=== PATIENT | male | born 1945 | race Caucasian/White ===

== ENCOUNTER 2019-01-04 08:56 | Inpatient (IN) ==
[2019-01-04] MEDS ORDERED: LORazepam 1 MG TABLET ONE (09:52)
[2019-01-04] MEDS ORDERED: LORazepam 1 MG TABLET PO STA (09:53)
[2019-01-04] MEDS ORDERED: SODIUM CHLORIDE 0.9% 1,000 ML IV STA (09:55)
[2019-01-04 10:32] LABS: Basophils % 0.5 % (0.0-0.8); Eosinophils % 0.2 % (0.00-10.9); Immature Granulocytes % 0.4 %; Immature Granulocytes Absolute 0.03 #; Mean Corpuscular HGB Conc 27.4 GM/DL (32-36); Mean Corpuscular Volume 66.7 FL (87-102); Mean Platelet Volume 10.2 FL (9.6-12.0); Monocytes % 6.5 % (1.7-12.7); Neutrophils % 80.4 % (38.7-73.9); Platelet Count 381 T/CUMM (130-400); Red Blood Count 2.46 MC/CUMM (3.8-5.5); Red Cell Distribution Width 17.5 % (9.3-17.3); White Blood Count 8.4 T/CUMM (4-12)
[2019-01-04 10:41] LABS: Hematocrit 16.4 VOL% (42.0-52.0); Hemoglobin 4.5 GM/DL (14.0-18.0)
[2019-01-04 10:55] LABS: Alanine Aminotransferase 13 U/L (16-61); Albumin 2.7 G/DL (3.4-5.0); Alkaline Phosphatase 97 U/L (45-117); Aspartate Amino Transferase 12 U/L (0-37); Bilirubin,Total < 0.39 MG/DL (0.2-1.0); Blood Urea Nitrogen 12 MG/DL (7-18); Calcium 8.3 MG/DL (8.5-10.1); Glucose 109 MG/DL (74-106); Osmolality,Calculated 279.4 MOS/KG (273-304); Total Protein 6.5 G/DL (6.4-8.3)
[2019-01-04] MEDS ORDERED: SODIUM CHLORIDE 0.9% 1,000 ML IV PRN (11:11)
[2019-01-04] MEDS ORDERED: ACETAMINOPHEN 325 MG TABLET PO PRN (11:34)
[2019-01-04] MEDS ORDERED: PROMETHAZINE 25 MG/1 ML VIAL IM PRN (11:34)
[2019-01-04] MEDS ORDERED: ONDANSETRON 4 MG/2 ML VIAL IV PRN (11:34)
[2019-01-04 11:39] LABS: Apearance,Urine CLEAR (Clear); Bacteria,Urine Occasional /HPF (Few); Bilirubin,Urine Negative (Negative); Blood, Urine Negative (Negative); Glucose,Urine (UA) Negative (Negative); Hyaline Casts,Urine 3 /LPF (0-3); Ketones,Urine Negative (Negative); Mucus,Urine Occasional /LPF (Occasional); Nitrite,Urine Negative (Negative); Protein,Urine Negative; RBC,Urine 2 /HPF (0-4); Urine Color Yellow (Yellow); Urine Specific Gravity 1.015 (1.001-1.035); Urine Urobilinogen < 2.0 EU/DL (0.2-1.0); WBC,Urine <1 /HPF (0-6)
[2019-01-04 11:48] LABS: Hypochromasia 1+; Ovalocytes Slight; Platelet Estimate Adequate
[2019-01-04 11:56] LABS: % Iron Saturation 2.5 % (18-50); Ferritin 4.2 ng/ml (26-388)
[2019-01-04] MEDS ORDERED: BISACODYL 5 MG TABLET PO ONE ×2 (12:00→19:00)
[2019-01-04 12:21] LABS: Folate 10.2 NG/ML (5.4-24.0)
[2019-01-04 13:56] LABS: Cancer Antigen 19-9 10.4 U/ML (0-37)
[2019-01-04 14:18] LABS: Carcinoembryonic Antigen 122.3 NG/ML (0.0-5.0)
[2019-01-04 14:30] LABS: Basophils % 0.2 % (0.0-0.8); Immature Granulocytes % 0.7 %; Immature Granulocytes Absolute 0.06 #; Lymphocytes # 1.2 10*3/uL (1.4-4.0); Lymphocytes % 14.9 % (21.2-54.2); Mean Corpuscular HGB Conc 27.2 GM/DL (32-36); Mean Corpuscular Volume 66.8 FL (87-102); Mean Platelet Volume 9.7 FL (9.6-12.0); Monocytes % 5.4 % (1.7-12.7); Neutrophils % 78.8 % (38.7-73.9); Platelet Count 329 T/CUMM (130-400); Red Blood Count 2.26 MC/CUMM (3.8-5.5); Red Cell Distribution Width 17.6 % (9.3-17.3); White Blood Count 8.4 T/CUMM (4-12)
[2019-01-04 14:40] LABS: Hemoglobin 4.1 GM/DL (14.0-18.0)
[2019-01-04 14:41] LABS: Hematocrit 15.1 VOL% (42.0-52.0)
[2019-01-04] MEDS: NICOTINE 21 MG/24 HR PATCH TRANSDERM SCH (14:49)
[2019-01-04] MEDS: FAMOTIDINE 20 MG/2 ML VIAL IV SCH (14:49)
[2019-01-04] MEDS: IRON SUCROSE 200 MG in SODIUM CHLORIDE 0.9% 100 ML IV SCH (14:50)
[2019-01-04 15:03] LABS: Folate 9.5 NG/ML (5.4-24.0); Vitamin B12 411 PG/ML (211-911)
[2019-01-04 15:51] LABS: Sedimentation Rate-Westergren 63 MM/HR (0-20)
[2019-01-04 16:21] LABS: Hypochromasia 3+; Microcytosis 2+; Target Cells 1+
[2019-01-04 16:22] LABS: Helmet Cells Few; Ovalocytes Few
[2019-01-04 16:23] LABS: Platelet Estimate Adequate
[2019-01-04] MEDS ORDERED: POLYETHYLENE GLYCOL POWDER 255 GM BOTTLE PO ONE (18:00)
[2019-01-04] MEDS: chlordiazePOXIDE 25 MG CAPSULE PO SCH ×2 (18:30→21:12)
[2019-01-04] MEDS ORDERED: MAGNESIUM CITRATE 300 ML BOTTLE PO ONE (21:00)
[2019-01-04] MEDS: PANTOPRAZOLE 40 MG TABLET PO SCH (21:06)
[2019-01-05] MEDS ORDERED: HALOPERIDOL 5 MG/ML AMP IM STA (00:59)
[2019-01-05 04:25] LABS: INR 1.1; PT Patient Result 11.8 SECS
[2019-01-05 04:43] LABS: Alanine Aminotransferase < 9 U/L (16-61); Albumin 2.2 G/DL (3.4-5.0); Alkaline Phosphatase 82 U/L (45-117); Aspartate Amino Transferase 12 U/L (0-37); Blood Urea Nitrogen 11 MG/DL (7-18); Calcium 7.8 MG/DL (8.5-10.1); Glucose 72 MG/DL (74-106); HDL Cholesterol 52 MG/DL (40-60); Osmolality,Calculated 283.8 MOS/KG (273-304); Risk Ratio 2.02; Total Protein 5.1 G/DL (6.4-8.3); Triglycerides 79 MG/DL (2-150); VLDL CHOLESTEROL 15.8 MG/DL
[2019-01-05] MEDS ORDERED: LACTATED RINGERS 1,000 ML IV SCH (08:00)
[2019-01-05] MEDS ORDERED: PROPOFOL 200 MG/20 ML VIAL IV ONE (09:00)
[2019-01-05] MEDS ORDERED: LIDOCAINE 2% 5 ML VIAL ONE (09:00)
[2019-01-05] MEDS ORDERED: PANTOPRAZOLE 40 MG TABLET PO SCH (09:00)
[2019-01-05 09:45] LABS: Basophils # 0.1 10*3/uL (0.0-0.2); Basophils % 0.5 % (0.0-0.8); Eosinophils % 0.1 % (0.00-10.9); Hematocrit 36.5 VOL% (42.0-52.0); Immature Granulocytes % 0.5 %; Immature Granulocytes Absolute 0.07 #; Lymphocytes # 1.1 10*3/uL (1.4-4.0); Lymphocytes % 7.4 % (21.2-54.2); Mean Corpuscular HGB Conc 32.1 GM/DL (32-36); Mean Platelet Volume 9.9 FL (9.6-12.0); Monocytes % 5.8 % (1.7-12.7); NRBC # 0.02 10*3/uL; Neutrophils % 85.7 % (38.7-73.9); Red Cell Distribution Width 21.2 % (9.3-17.3)
[2019-01-05 09:46] LABS: Red Blood Count 4.62 MC/CUMM (3.8-5.5); White Blood Count 14.4 T/CUMM (4-12)
[2019-01-05 09:47] LABS: Hemoglobin 11.7 GM/DL (14.0-18.0); Platelet Count 245 T/CUMM (130-400)
[2019-01-05] MEDS: chlordiazePOXIDE 25 MG CAPSULE PO SCH ×3 (13:24→21:08)
[2019-01-05] MEDS: FERROUS SULFATE 325 MG TABLET PO SCH ×2 (13:24→20:18)
[2019-01-05] MEDS: IRON SUCROSE 200 MG in SODIUM CHLORIDE 0.9% 100 ML IV SCH (13:24)
[2019-01-05] MEDS: PANTOPRAZOLE 40 MG TABLET PO SCH ×2 (13:25→20:18)
[2019-01-05] MEDS: NICOTINE 21 MG/24 HR PATCH TRANSDERM SCH (15:30)
[2019-01-05] MEDS: FAMOTIDINE 20 MG/2 ML VIAL IV SCH (15:30)
[2019-01-05] MEDS: DEXTROSE 5% NACL 0.45% 1,000 ML IV SCH ×4 (15:31→23:29)
[2019-01-05 19:23] LABS: Hematocrit 38.7 VOL% (42.0-52.0)
[2019-01-05 19:24] LABS: Hemoglobin 12.2 GM/DL (14.0-18.0)
[2019-01-05] MEDS ORDERED: POLYETHYLENE GLYCOL POWDER 255 GM BOTTLE PO ONE (19:39)
[2019-01-05] MEDS: MAGNESIUM CITRATE 300 ML BOTTLE PO PRN (21:42)
[2019-01-06 02:56] LABS: Basophils % 0.2 % (0.0-0.8); Hematocrit 37.1 VOL% (42.0-52.0); Hemoglobin 11.5 GM/DL (14.0-18.0); Immature Granulocytes % 0.7 %; Immature Granulocytes Absolute 0.15 #; Lymphocytes # 0.6 10*3/uL (1.4-4.0); Mean Corpuscular Volume 79.4 FL (87-102); Mean Platelet Volume 9.8 FL (9.6-12.0); Monocytes % 4.7 % (1.7-12.7); Neutrophils % 91.4 % (38.7-73.9); Platelet Count 236 T/CUMM (130-400); Red Blood Count 4.67 MC/CUMM (3.8-5.5); Red Cell Distribution Width 21.7 % (9.3-17.3); White Blood Count 20.5 T/CUMM (4-12)
[2019-01-06 03:41] LABS: Band Neutrophils 5 % (0-10); Lymphocytes 4 % (20-55); Segmented Neutrophils 85 % (50-85); Total Cells Counted 100
[2019-01-06 03:42] LABS: Anisocytosis 1+
[2019-01-06 03:43] LABS: Acanthocytes Few; Hypochromasia Slight; Ovalocytes 1+; Platelet Estimate Adequate; Target Cells Few
[2019-01-06 04:18] LABS: Calcium 7.7 MG/DL (8.5-10.1); Osmolality,Calculated 280.5 MOS/KG (273-304)
[2019-01-06] MEDS: MAGNESIUM CITRATE 300 ML BOTTLE PO PRN (04:52)
[2019-01-06] MEDS ORDERED: cefTRIAXone 1,000 MG in SYRINGE 1 EACH IV SCH (07:30)
[2019-01-06] MEDS ORDERED: SODIUM BICARB INJ 100 MEQ in STERILE WATER INJ 400 ML IV ONE (08:00)
[2019-01-06 08:11] LABS: Hemoglobin A1 (Alkaline) 97.2 % (96.5-98.5); Hemoglobin A2 (Alkaline) 2.8 % (1.5-3.5)
[2019-01-06] MEDS: POTASSIUM CHLORIDE RIDER 10 MEQ in PREMIX 1 EACH IV SCH ×8 (09:09→20:54)
[2019-01-06] MEDS: DEXT 5% NACL 0.45% KCL 20 MEQ 20 MEQ/1,000 ML BAG IV SCH ×3 (09:09→23:32)
[2019-01-06] MEDS: chlordiazePOXIDE 25 MG CAPSULE PO SCH (09:10)
[2019-01-06] MEDS: FERROUS SULFATE 325 MG TABLET PO SCH ×2 (09:10→20:49)
[2019-01-06] MEDS: IRON SUCROSE 200 MG in SODIUM CHLORIDE 0.9% 100 ML IV SCH (10:40)
[2019-01-06] MEDS: PANTOPRAZOLE 40 MG TABLET PO SCH ×2 (10:40→20:50)
[2019-01-06] MEDS ORDERED: POLYETHYLENE GLYCOL POWDER 255 GM BOTTLE PO ONE (11:05)
[2019-01-06 11:28] LABS: Hematocrit 33.6 VOL% (42.0-52.0); Hemoglobin 10.6 GM/DL (14.0-18.0)
[2019-01-06] MEDS: DEXTROSE 5% NACL 0.45% 1,000 ML IV SCH (12:17)
[2019-01-06] MEDS: FAMOTIDINE 20 MG/2 ML VIAL IV SCH (13:31)
[2019-01-06] MEDS: LEVOFLOXACIN INJ 500 MG in PREMIX 1 EACH IV SCH (16:02)
[2019-01-06] MEDS: NICOTINE 21 MG/24 HR PATCH TRANSDERM SCH (16:24)
[2019-01-06] MEDS: PIPERACILLIN/TAZOBACTAM 3,375 MG in SODIUM CHLORIDE 0.9% 100 ML IV SCH ×2 (16:25→23:33)
[2019-01-06] MEDS ORDERED: MAGNESIUM SULF RIDER 2 GM in PREMIX 1 EACH IV PRN (17:30)
[2019-01-06] MEDS ORDERED: POTASSIUM CHLORIDE 20 MEQ TABLET PO PRN (17:30)
[2019-01-06] MEDS ORDERED: MAGNESIUM SULF RIDER 4 GM in PREMIX 1 EACH IV PRN (17:30)
[2019-01-06 18:44] LABS: Calcium 7.1 MG/DL (8.5-10.1); Osmolality,Calculated 285.3 MOS/KG (273-304)
[2019-01-06] MEDS ORDERED: chlordiazePOXIDE 25 MG CAPSULE PO SCH (21:00)
[2019-01-07 05:03] LABS: Basophils % 0.2 % (0.0-0.8); Hematocrit 31.9 VOL% (42.0-52.0); Hemoglobin 10.1 GM/DL (14.0-18.0); Immature Granulocytes % 0.8 %; Immature Granulocytes Absolute 0.13 #; Lymphocytes # 0.9 10*3/uL (1.4-4.0); Lymphocytes % 5.1 % (21.2-54.2); Mean Corpuscular HGB Conc 31.7 GM/DL (32-36); Mean Corpuscular Volume 78.2 FL (87-102); Mean Platelet Volume 10.1 FL (9.6-12.0); Monocytes % 4.2 % (1.7-12.7); Neutrophils % 89.7 % (38.7-73.9); Platelet Count 216 T/CUMM (130-400); Red Blood Count 4.08 MC/CUMM (3.8-5.5); Red Cell Distribution Width 22.8 % (9.3-17.3); White Blood Count 16.8 T/CUMM (4-12)
[2019-01-07 05:11] LABS: Calcium 7.3 MG/DL (8.5-10.1); Osmolality,Calculated 287.8 MOS/KG (273-304)
[2019-01-07 05:28] LABS: Hypochromasia 1+; Platelet Estimate Adequate
[2019-01-07] MEDS: PIPERACILLIN/TAZOBACTAM 3,375 MG in SODIUM CHLORIDE 0.9% 100 ML IV SCH ×3 (06:08→23:14)
[2019-01-07] MEDS: DEXT 5% NACL 0.45% KCL 20 MEQ 20 MEQ/1,000 ML BAG IV SCH ×2 (06:47→14:29)
[2019-01-07] MEDS: POTASSIUM CHLORIDE RIDER 10 MEQ in PREMIX 1 EACH IV PRN ×4 (06:52→15:54)
[2019-01-07] MEDS: IRON SUCROSE 200 MG in SODIUM CHLORIDE 0.9% 100 ML IV SCH (08:51)
[2019-01-07] MEDS: PANTOPRAZOLE 40 MG TABLET PO SCH ×2 (08:52→20:56)
[2019-01-07] MEDS: FERROUS SULFATE 325 MG TABLET PO SCH ×2 (08:52→20:56)
[2019-01-07] MEDS: NICOTINE 21 MG/24 HR PATCH TRANSDERM SCH (08:59)
[2019-01-07] MEDS ORDERED: ETOMIDATE 20 MG/10 ML VIAL IV ONE (09:00)
[2019-01-07] MEDS ORDERED: PROPOFOL 200 MG/20 ML VIAL IV ONE (09:00)
[2019-01-07] MEDS ORDERED: LIDOCAINE 1% 5 ML VIAL ONE (09:00)
[2019-01-07] MEDS: LACTATED RINGERS 1,000 ML IV SCH (10:47)
[2019-01-07] MEDS: ALBUTEROL/IPRATROPIUM 3 ML NEB RESP TX SCH ×2 (12:30→20:02)
[2019-01-07] MEDS: LEVOFLOXACIN INJ 500 MG in PREMIX 1 EACH IV SCH (13:44)
[2019-01-07] MEDS: FAMOTIDINE 20 MG/2 ML VIAL IV SCH (13:44)
[2019-01-07] MEDS ORDERED: DEXTROSE 50% 25 GM/50 ML VIAL IV PRN (16:28)
[2019-01-07] MEDS ORDERED: GLUCAGON 1 MG VIAL IM PRN (16:32)
[2019-01-07] MEDS: INSULIN REGULAR 100 UNIT/ML SUBCUT SCH (17:53)
[2019-01-08] MEDS: ALBUTEROL/IPRATROPIUM 3 ML NEB RESP TX SCH ×4 (01:26→19:57)
[2019-01-08] MEDS: INSULIN REGULAR 100 UNIT/ML SUBCUT SCH ×4 (03:48→21:06)
[2019-01-08] MEDS: DEXT 5% NACL 0.45% KCL 20 MEQ 20 MEQ/1,000 ML BAG IV SCH ×3 (04:19→21:06)
[2019-01-08 06:01] LABS: Basophils % 0.1 % (0.0-0.8); Hematocrit 33.2 VOL% (42.0-52.0); Hemoglobin 9.9 GM/DL (14.0-18.0); Immature Granulocytes % 0.4 %; Immature Granulocytes Absolute 0.06 #; Lymphocytes # 0.8 10*3/uL (1.4-4.0); Lymphocytes % 4.9 % (21.2-54.2); Mean Corpuscular HGB Conc 29.8 GM/DL (32-36); Mean Corpuscular Volume 81.8 FL (87-102); Mean Platelet Volume 10.7 FL (9.6-12.0); Monocytes % 4.3 % (1.7-12.7); Neutrophils % 90.3 % (38.7-73.9); Platelet Count 174 T/CUMM (130-400); Red Blood Count 4.06 MC/CUMM (3.8-5.5); Red Cell Distribution Width 24.3 % (9.3-17.3); White Blood Count 15.4 T/CUMM (4-12)
[2019-01-08 06:26] LABS: Calcium 7.7 MG/DL (8.5-10.1); Osmolality,Calculated 272.8 MOS/KG (273-304)
[2019-01-08 06:29] LABS: Calcium 7.7 MG/DL (8.5-10.1); Osmolality,Calculated 276.5 MOS/KG (273-304); Prealbumin 3.6 MG/DL (20-40)
[2019-01-08 06:52] LABS: Anisocytosis 1+; Hypochromasia 1+; Lymphocytes 3 % (20-55); Macrocytosis 1+; Microcytosis 1+; Ovalocytes 1+; Segmented Neutrophils 93 % (50-85); Total Cells Counted 100
[2019-01-08 06:53] LABS: Platelet Estimate Adequate; Polychromasia Slight; Target Cells Slight
[2019-01-08] MEDS: NICOTINE 21 MG/24 HR PATCH TRANSDERM SCH (08:38)
[2019-01-08] MEDS: PIPERACILLIN/TAZOBACTAM 3,375 MG in SODIUM CHLORIDE 0.9% 100 ML IV SCH ×3 (08:39→23:01)
[2019-01-08] MEDS: PANTOPRAZOLE 40 MG TABLET PO SCH ×2 (08:49→21:06)
[2019-01-08] MEDS: FERROUS SULFATE 325 MG TABLET PO SCH ×2 (08:49→21:06)
[2019-01-08] MEDS: LACTATED RINGERS 1,000 ML IV SCH (08:49)
[2019-01-08] MEDS: IRON SUCROSE 200 MG in SODIUM CHLORIDE 0.9% 100 ML IV SCH (12:45)
[2019-01-08] MEDS: FAMOTIDINE 20 MG/2 ML VIAL IV SCH (13:41)
[2019-01-08] MEDS: LEVOFLOXACIN INJ 500 MG in PREMIX 1 EACH IV SCH (13:41)
[2019-01-09] MEDS: INSULIN REGULAR 100 UNIT/ML SUBCUT SCH ×3 (00:54→12:29)
[2019-01-09] MEDS: ALBUTEROL/IPRATROPIUM 3 ML NEB RESP TX SCH ×3 (01:14→14:03)
[2019-01-09 06:19] LABS: Basophils % 0.1 % (0.0-0.8); Hematocrit 33.2 VOL% (42.0-52.0); Hemoglobin 10.1 GM/DL (14.0-18.0); Immature Granulocytes % 0.8 %; Immature Granulocytes Absolute 0.11 #; Lymphocytes # 0.8 10*3/uL (1.4-4.0); Lymphocytes % 5.4 % (21.2-54.2); Mean Corpuscular HGB Conc 30.4 GM/DL (32-36); Mean Corpuscular Volume 81.8 FL (87-102); Mean Platelet Volume 9.8 FL (9.6-12.0); Neutrophils % 88.7 % (38.7-73.9); Platelet Count 145 T/CUMM (130-400); Red Blood Count 4.06 MC/CUMM (3.8-5.5); White Blood Count 14.3 T/CUMM (4-12)
[2019-01-09 06:40] LABS: Anisocytosis 1+; Hypochromasia 1+; Microcytosis 1+
[2019-01-09 06:41] LABS: Albumin 1.6 G/DL (3.4-5.0); Calcium 7.7 MG/DL (8.5-10.1); Osmolality,Calculated 276.4 MOS/KG (273-304)
[2019-01-09 06:41] LABS: Platelet Estimate Adequate
[2019-01-09] MEDS: LACTATED RINGERS 1,000 ML IV SCH (09:01)
[2019-01-09] MEDS: PIPERACILLIN/TAZOBACTAM 3,375 MG in SODIUM CHLORIDE 0.9% 100 ML IV SCH ×2 (09:01→17:09)
[2019-01-09] MEDS: FERROUS SULFATE 325 MG TABLET PO SCH (09:02)
[2019-01-09] MEDS: NICOTINE 21 MG/24 HR PATCH TRANSDERM SCH (09:02)
[2019-01-09] MEDS: PANTOPRAZOLE 40 MG TABLET PO SCH (09:02)
[2019-01-09] MEDS: POTASSIUM CHLORIDE RIDER 10 MEQ in PREMIX 1 EACH IV PRN ×2 (12:51→15:13)
[2019-01-09] MEDS: LEVOFLOXACIN INJ 500 MG in PREMIX 1 EACH IV SCH (15:28)
[2019-01-09] MEDS: FAMOTIDINE 20 MG/2 ML VIAL IV SCH (15:28)
[2019-01-09] MEDS ORDERED: LORazepam 2 MG/1 ML VIAL IV PRN (16:45)
[2019-01-09] MEDS ORDERED: ACETAMINOPHEN 650 MG SUPP RECTAL PRN (16:46)
[2019-01-09] MEDS: MORPHINE 4 MG/1 ML VIAL IV PRN (16:58)
[2019-01-09] MEDS: fentaNYL 50 MCG/HR PATCH TRANSDERM SCH (16:59)
[2019-01-09] MEDS: SCOPOLAMINE 1.5 MG PATCH TRANSDERM SCH (16:59)
[2019-01-09] MEDS: DEXT 5% NACL 0.45% KCL 20 MEQ 20 MEQ/1,000 ML BAG IV SCH (17:09)
[2019-01-10] MEDS: MORPHINE 4 MG/1 ML VIAL IV PRN (20:25)
[2019-01-11] MEDS: MORPHINE 4 MG/1 ML VIAL IV PRN (17:18)
[2019-01-12] MEDS: fentaNYL 50 MCG/HR PATCH TRANSDERM SCH (08:09)
[2019-01-12] MEDS: SCOPOLAMINE 1.5 MG PATCH TRANSDERM SCH (08:10)
[2019-01-12] MEDS: MORPHINE 4 MG/1 ML VIAL IV PRN (10:01)
[2019-01-13] MEDS: MORPHINE 4 MG/1 ML VIAL IV PRN ×3 (15:27→21:19)
[2019-01-14] MEDS: MORPHINE 4 MG/1 ML VIAL IV PRN ×5 (10:33→22:06)
[2019-01-15] MEDS: MORPHINE 4 MG/1 ML VIAL IV PRN ×9 (00:38→21:01)
[2019-01-15] MEDS: SCOPOLAMINE 1.5 MG PATCH TRANSDERM SCH (09:35)
[2019-01-15] MEDS: fentaNYL 50 MCG/HR PATCH TRANSDERM SCH (09:36)
[2019-01-15 13:24] VITALS: BP 62/27
== END 2019-01-15 22:11 | disposition expired | DRG 374 ==
LOC: N.ED 08:56 → N.4E 11:34 → SUATTDRO 11:34 → N.4E 13:53
PROVIDERS: ADMIT Family Medicine; ATTEND Internal Medicine